=== PATIENT | male | born 1975 | race Caucasian/White ===

== ENCOUNTER 2017-01-12 13:05 | Emergency (ER) | payer OTHER ==
[~2017-01-12 13:05] MED LIST: ANUSOL HC-HEMOR1 SUP RC; ANUSOL-HC30 GM TOP; CYCLOBENZAPRINE10 MG PO; MEDROL DOSEPAK1 PAC PO; MELOXICAM7.5 M1 PO; MINOCYCLINE100 MG PO; MOTRIN800 MG PO; OXYCODONE HCL10 M2 PO; OXYCODONE HYDRO10 M1 PO; OXYCODONE5 M1 PO; PROCTOFOAM-HC 110 GM RC; PROZAC20 M1 PO; SERTRALINE HYDR25 MG PO; TRAZODONE100 MG PO; VALIUM 10 MG. T10 MG PO; VALIUM5 M1 PO; VITAMIN D1000 UNIT PO
[2017-01-12 13:23] VITALS: BP 122/78
--- NOTE | 2017-01-12 14:43 | ED GENERAL ADULT ---
History of Present Illness General Chief Complaint: Laceration Procedure Stated Complaint: LAC TO MULTIPLE FINGERS ON L HAND Source: patient, friend Exam Limitations: no limitations Vital Signs & Intake/Output Vital Signs & Intake/Output Vital Signs Date Time Temp Pulse Resp B/P B/P Pulse O2 O2 Flow FiO2 Mean Ox Delivery Rate 01/12 1514 Room Air Room Air 01/12 1323 97.8 91 22 122/78 Allergies Coded Allergies: meperidine (From DEMEROL) (DIFFICULTY BREATHING 06/13/16) vancomycin (ZACK SYNDROME 06/13/16) Reconcile Medications Cholecalciferol (Vitamin D3) (Vitamin D) (Unknown Strength) TABLET (Unknown Dose) PO DAILY BONE HEALTH (Reported) Fluoxetine Hydrochloride (Prozac) 20 MG CAP 1 CAP PO DAILY MENTAL HEALTH ( Reported) Hydrocortisone (Anusol-Hc) 2.5 % CREAM..G. 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 1 LAC 3/4 IN 1 LAC 1/4 INCH BLEEDING CONTROLLED Triage Nurses Notes Reviewed? yes HPI: 41 yo M presenting with finger lacerations. 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 No motor or sensory deficits, bleeding controlled. Last tetanus 9 years ago. (CARLO VALADEZ,MEL) Past History Travel History Traveled to [place] past 21 day No Medical History Any Pertinent Medical History? 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 Yes (MEL MAOTS MD) Review of Systems Review of Systems Constitutional: Reports: no symptoms. EENTM: Reports: no symptoms. Respiratory: Reports: no symptoms. Cardiovascular: Reports: no symptoms. GI: Reports: no symptoms. Genitourinary: Reports: no symptoms. Musculoskeletal: Reports: no symptoms. Skin: Reports: see HPI. Neurological/Psychological: Reports: no symptoms. Hematologic/Endocrine: Reports: no symptoms. Immunologic/Allergic: Reports: no symptoms. All Other Systems: Reviewed and Negative (MEL MATOS MD) Physical Exam Physical Exam General Appearance: well developed/nourished, no apparent distress, alert, awake Head: atraumatic Eyes: Bilateral: normal appearance. Ears, Nose, Throat: normal pharynx, normal ENT inspection Neck: normal inspection Respiratory: normal breath sounds, chest non-tender, no respiratory distress Cardiovascular: regular rate/rhythm, normal peripheral pulses Gastrointestinal: normal bowel sounds, soft, non-tender Comments: Left Hand: 1 cm lacerations to palmar surface of 2nd, 3rd, and 5th fingers, Superficial, no visible tendinous involvement, no motor or sensory deficits, 2+ radial pulse, good cap refill x 5 Core Measures ACS in differential dx? No CVA/TIA Diagnosis: No Severe Sepsis Present: No Septic Shock Present: No (MEL MATOS MD) Progress Differential Diagnoses I considered the following diagnoses in my evaluation of the patient: [ Laceration, tendon injury, vascular injury] Plan of Care: Current Medications Sig/Edis Start time Last Medication Dose Stop Time Status Admin Tetanus/Reduced 0.5 ML ONCE ONE 01/12 1445 CAN Diphtheria/Acell 01/12 1446 Pertussis (Adacel) Physician MDM: 41 yo M presenting with lacerations to palmar surface of L 2nd, 3rd, 5th digits, no concerns for tendon involvement. Tetanus updated. Lidocaine 1% without epi, irrigation. Laceration repaired with 4-0 ethilon. Discharged with return precautions, plan to f/u with PMD in 7-10 days for suture removal. (MEL MATOS MD) Initial ED EKG: none (MEL MATOS MD) Departure Departure Disposition: HOME OR SELF CARE Condition: Stable Clinical Impression Primary Impression: Finger laceration Referrals: ADITHYA MABRY MD (PCP/Family) Additional Instructions: Follow up with your primary care physcician in the 7-10 days for suture removal. Return to the ED for any new, worsening, or concerning symptoms. Departure Forms: Customer Survey General Discharge Information (CARLO VALADEZ,MEL) PA/MENAGERIE SUPERINTENDENT Co-Sign Statement Statement: ED Attending supervision documentation- [] I saw and evaluated the patient. I have also reviewed all the pertinent lab results and diagnostic results. I agree with the findings and the plan of care as documented in the PA's/MENAGERIE SUPERINTENDENT's documentation. [X] I have reviewed the ED Record and agree with the PA's/MENAGERIE SUPERINTENDENT's documentation. [] Additions or exceptions (if any) to the PAs/MENAGERIE SUPERINTENDENT's note and plan are summarized below: [] (LAURYN SPAULDING DO) Critical Care Note Critical Care Note Critical Care Time: non-applicable (CARLO VALADEZ,MEL)
== END 2017-01-12 15:52 ==
LOC: ERH 13:05
DX: S61.412A Laceration without foreign body of left hand, initial encounter (principal); W45.8XXA Other foreign body or object entering through skin, initial encounter; Y92.9 Unspecified place or not applicable; Y93.9 Activity, unspecified
CPT/HCPCS: 90471; 90714